=== PATIENT | female | born 1985 | race Caucasian/White ===

== ENCOUNTER 2024-07-30 17:31 | Emergency (ER) | payer BC, SELFPAY ==
[2024-07-30] VITALS (9 sets, daily range): BP systolic 118–139; BP diastolic 61–74; PULSE 71–78; RESP 18–20; TEMP 36.7; O2SAT 96–100; BMI 31.3
--- OUTSIDE RECORDS SUMMARY | 2024-07-30 17:33 | XMS_ITS | Clinical Summary ---
Author Organization [facility] Address [address] [place] [id number] Care Team Providers Care Dynamics Ax Technical Architect Name Role Phone Margarita Agosto MD Primary Care Provider Allergies No known active allergies Medications multivit with min-folic acid (WOMEN'S MULTIVITAMIN GUMMIES) 200 mcg chew Take by mouth. 0 6 Active norgestimate-ethi nyl estradiol, 0.25-35 mg-mcg, (Estarylla) 0.25-35 mg-mcg tabletIndications :Dysmenorrhea Take 1 Tablet by mouth once daily. 84 Tablet 3 Active FLUoxetine (PROZAC) 10 mg capsuleIndication s:Anxiety TAKE 1 CAPSULE (10 MG) BY MOUTH EVERY MORNING. 90 Capsule 4 Active Active Problems No known active problems Resolved Problems Problem Noted Date Diagnosed Date Resolved Date Supervision of other normal 05/16/2012 01/17/2017 Overview (11/27/2012): Rubella NonImmune TDaP 09/29/2012 Has had flu shot this season It's a boy! GBS negative HEMOGLOBIN (g/dL) Date Value 11/21/2012 10.8* Immunizations Name Administration Dates Next Due AMB Influenza, IIV4 PF (=>6 mos Flulaval,Fluzone Fluarix)(Flu Clinic Only) 04/02/2019,04/11/2018,04/23/2016, 0 15 COVID-19 vaccine (Screenburn NTech 30mcg/0.3mL) PF, MDV 06/24/2020,06/03/2020 Influenza, IIV3 (Age 6-35 mos) 03/18/2020 Influenza, IIV3 (Age >=3 years) 05/16/2012,05/10 Influenza, IIV4 03/03/2022,04/04/2017,03/25/2014 MMR 07/20/2018,12/24/2012 Tdap 09/15/2021,09/29/2012 Family History Medical History Relation Name Comments Good Health Father Deep vein thrombosis Maternal Grandmother Good Health Mother Hyperlipidemia Sister 1 Tomasz Anxiety disorder Sister 2 Rebecca Anxiety disorder Sister 3 Nay Good Health Sister 4 Chyna ADD / ADHD Son 1 Patricio Allergies Son 1 Patricio Anxiety disorder Son 1 Patricio Asthma Son 1 Patricio ADD / ADHD Son 2 Mazin Good Health Son 3 Felipe Anesthesia Problem No Family History Relation Name Status Comments Father Alive Maternal Grandmother Mother Alive Sister 1 Tomasz Alive Sister 2 Rebecca Alive Sister 3 Nay Alive Sister 4 Chyna Alive Son 1 Patricio Alive Son 2 Mazin Alive Son 3 Felipe Alive Social History Tobacco Use Types Packs/Day Years Used Date Smoking Tobacco: Former Cigarettes 1 12 0 07/11/1999 - 07/11/2011 Smokeless Tobacco: Never Tobacco Cessation:Counseling Given: Yes Alcohol Use Standard Drinks/Week Comments Yes 0 (1 standard drink = 0.6 oz pur e alcohol) PHQ-2 Answer Date Recorded PHQ-2 TOTAL SCORE 0 03/08/2023 Social Connections Answer Date Recorded Do you often feel lonely or isolated from those around you? 0 04/14/2024 Financial Resource Strain Answer Date R ecorded Difficulty of Paying Living Expenses 3 04/14/2024 Difficulty of Paying Living Expenses Not on file 04/14/2024 Food Insecurity Answer Date Recorded Do you worry your food will run out before you are able to buy more? 1 04/14/2024 Transportation Needs Answer Date Record ed Does lack of transportation keep you from medica l appointments? 1 04/14/2024 Does lack of transportation keep you from work, meetings or getting things that you need? 1 04/14/2024 Housing Stability Answer Date Recorded What is your housing situation today? 1 04/14/2024 Utilities Answer Date Recorded Do you have trouble paying f or utilities (for example, heat, electricity, water, phone)? 1 04/14/2024 Comments No Sex and Gender Information Value Date Recorded Sex Assigned at Female 04/02/2020 9:50 AM CDT Legal Sex Female 8:16 AM LIVERY CAR DRIVER Gender Identity Female 04/02/2020 9:50 AM CDT Sexual Orientation Straight 04/02/2020 9: 50 AM CDT Obstetrics History Para Term AB IAB SAB Ectopic Multiple Livin g Live Births 3 3 3 3 1 Date Outcome GA Total Labor Labor/2nd/3rd Weight Sex Type Anes PTL Michelle A1 A5 Name Clin 2007 Term 40w 0d 28h 00m/ 3.88 kg (8 lb 9 oz) M VAGINA L VACU patricio 2009 Term 40w 0d 6h 00m/ 3.88 kg (8 lb 9 oz) M Vag mazin Comments:induced 2012 Term 40w 2d 3h 20m 3h 02m/0h 11m/0h 07m M Vag Epidur al N Livin g 8 9 Felipe Tappe r Complications:None Comments:System Genera arian. Please review and update details. Last Filed Vital Signs Vital Sign Reading Time Taken Comments Blood Pressure 103/67 04/17/2021 8:48 AM LIVERY CAR DRIVER Pulse 73 04/17/2021 8:48 AM LIVERY CAR DRIVER Temperature 37.2 C (99 F) 02/16/2019 10:20 AM CDT Respiratory Rate 16 03/08/2019 11:35 AM CDT Oxygen Saturation 99% 04/17/2021 8:48 AM LIVERY CAR DRIVER Inhaled Oxygen Concentration - - Weight 75.9 kg (167 lb 6.4 oz) 04/17/2021 8:48 A M LIVERY CAR DRIVER Height 166.4 cm (5' 5.5) 04/17/2021 8:48 AM LIVERY CAR DRIVER Body Mass Index 27.43 04/17/2021 8:48 AM LIVERY CAR DRIVER Plan of Treatment Health Maintenance Due Date Last Done Comments Hepatitis C screening for age 18-79 2003 BMI (ht and wt on same day) for age 18+ 04/17/2022 04/17/2021, 02/16/2019, 01/08/2019, Additional history exists COVID-19 vaccine series ( season) 2024 03/03/2022, 07/31/2021, 06/24/2020, Additional history exists Influenza for age 9-49 02/05/2024 , 04/02/2019, 04/11/2018, Additional history exists Depression screening for age 12+ 03/08/2024 03/08/2023, 07/15/2022, 07/12/2022, Additional history exists Pap test for age 21-65 04/17/2026 , 04/17/2021, 02/02/2016, Additional history exists Tetanus booster 09/16/2031 09/15/2021, 09/29/2012 HIV for age 15-65 Completed 05/16/2012 Tdap Completed 09/15/2021, 09/29/2012 Pneumococcal series for age 6-49 Aged Out No longer eligible based on patient's age to complete this topic Procedures Procedure Name Priority Date/Time Associated Diagnosis Comments HPV HIGH RISK Routine 04/17/2021 9:30 AM LIVERY CAR DRIVER Screening for cervical cancer ANTI HIV 1/2 Routine 05/16/2012 4:41 PM LIVERY CAR DRIVER Supervision of other normal from Last 3 Months or Most Recently Relevant to Health Maintenance Results * HPV HIGH RISK (04/17/2021 9:30 AM LIVERY CAR DRIVER) TYPE 16 Negative Negative 04/21/2021 11:56 AM LIVERY CAR DRIVER [facility] TYPE 18 Negative Negative 04/21/2021 11:56 AM LIVERY CAR DRIVER [facility] OTHER HIGH RISK TYPES Negative Negative 04/21/2021 11:56 AM LIVERY CAR DRIVER [facility] Other (Cervical) Non-Blood / Unknown 04/17/2021 9:30 AM LIVERY CAR DRIVER 04/20/2021 9:35 AM [facility] 04/21/2021 11:56 AM LIVERY CAR DRIVER HPV types 16, 18, 31, 33, 35, 39, 45, 51, 52, 56, 58, 59, 66 and 68 DNA were undetectable or below the pre-set threshold. Methodology: [employer] 4800 HPV Test us Margarita Agosto MD MICROBIOLOGY Final R esult [facility] [address] [place] [address], [place] * ANTI HIV 1/2 (05/16/2012 4:41 PM LIVERY CAR DRIVER) ANTI HIV 1/2 Non-reacti ve [facility] Blood specimen (specimen) BLOOD SPECIMEN / Unknown 05/16/2012 4:41 PM LIVERY CAR DRIVER 05/16/2012 4:33 PM LIVERY CAR DRIVER us Enedelia Whitifeld NP SEND OUTS F inal Result [facility] [place]IP [id number] [place] [address] from Last 3 Months or Most Recently Relevant to Health Maintenance Insurance [facility] Advance Directives * Full Code (Latest Code Status on File) Date Activated Date Inactivated Comments 01/17/2019 6:09 AM 01/17/2019 4:30 PM Question Answer Comments Code Status Discussion: Discussed Care Teams Dynamics Ax Technical Architect Relationship Specialty Start Date End Date Margarita Agosto [place] [address] PCP - General Family Practice 05/16/12
--- OUTSIDE RECORDS SUMMARY | 2024-07-30 17:33 | XMS_ITS | Continuity of Care Document ---
Author Organization [facility] Address [address] [place] [id number] Phone Care Team Providers Care Forestry Aide Name Role Phone Reinaldo Das MD, FACOG Unavailable Unavailable Allergies, Adverse Reactions, Alerts Substance Reaction Status Criticality No Known Drug Allergies Active No I nformation Medications Medication Instructions Dosage Effective Dates (start - stop) Status Comments Tylenol 325 mg Tab Take two tablets twi ce a day as needed. - Active Vitamin Tab One every night. - Active Advance Directives Directive Yes / No Effective Date File Name No Information Encounters Encounter Description Practice Location Reason(s) For Visit Diagnoses Date Provider [facility], [address] [place] [address], [id number], tel:[phone] [place] [address] No Information 2009 Pippa Najera. [address] [place] [address], [id number], [place]. tel:[phone] [address] [place] [address], [address] [place] [address], [id number], [place] tel:[phone] [place] [address] 6 weeks post (chief complaint) Postpart Follow-up Routine 2009 Pippa Najera. [address] [place] [address], [id number], [place]. tel:[phone] [address] [place] [address], [address] [place] [address], [id number], tel:[phone] [place] [address] No Information 2009 No Information [facility], [address] [place] [address], [id number], [place] tel:[phone] [place] [address] No Information 2009 Pippa Najera. [address] [place] [address], [id number], [place]. tel:[phone] [facility], [address] [place] [address], [id number], [place] tel:[phone] [place], [place] [address]e [facility] No Information 2009 Pippa Najera. [address] [place] [address], [id number], [place]. tel:[phone] [address] [place], [place] [address] [facility], [address] [place] [address], [id number], [place] tel:[phone] [place] [address] No Information 2009 Pippa Najera. [address] [place] [address], [id number], [place]. tel:[phone] [address] [place], [place] [address]irie [facility], [address] [place] [address], [id number], [place] tel:[phone] [place] [address] No Information 2009 Pippa Najera. [address] [place] [address], [id number], [place]. tel:[phone] [facility], [address] [place] [address], [id number], [place] tel:[phone] [place] [address] No Information 2009 Pippa Najera. [address] [place] [address], [id number], [place]. tel:[phone] [facility], [address] [place] [address], [id number], [place] tel:[phone] [place] [address] No Information 2009 Pippa Najera. [address] [place] [address], [id number], [place]. tel:[phone] [facility], [address] [place] [address], [id number], [place] tel:[phone] [place] [address] No Information 2009 Pippa Najera. [address] [place] [address], [id number], [place]. tel:[phone] [address] [place] [address], [address] [place] [address], [id number], [place] tel:[phone] [facility] No Information 2009 Pippa Najera. [address] [place] [address], [id number], [place]. tel:[phone] [place], [place] [address]e [facility], [address] [place] [address], [id number], [place] tel:[phone] [place] [address] No Information 2009 Pippa Najera. [address] [place] [address], [id number], [place]. tel:[phone] [address] [place] [address], [address] [place] [address], [id number], [place] tel:[phone] [place] [address] No Information 2009 Pippa Najera. [address] [place] [address], [id number], [place]. tel:[phone] [address] [place] [address], [address] [place] [address], [id number], [place] tel:[phone] [place] [address] No Information 2008 Pippa Najera. [address] [place] [address], [id number], [place]. tel:[phone] [place], [place] [address]e [facility], [address] [place] [address], [id number], [place] tel:[phone] [place] [address] No Information 2008 Pippa Najera. [address] [place] [address], [id number], [place]. tel:[phone] [address] [place] [address], [address] [place] [address], [id number], [place] tel:[phone] [facility] No Information 2008 Pippa Najera. [address] [place] [address], [id number], [place]. tel:[phone] [place], [place] [address]e [facility], [address] [place] [address], [id number], [place] tel:[phone] [facility] 6 weeks post (chief complaint) Postpart Follow-up Routine 2007 Pippa Najera. [address] [place] [address], [id number], [place]. tel:[phone] [place], [place] [address]e [facility], [address] [place] [address], [id number], [place] tel:[phone] [place] [address] No Information 2007 Pippa Najera. [address] [place] [address], [id number], [place]. tel:[phone] [place], [place] [address]e [facility], [address] [place] [address], [id number], [place] tel:[phone] [place] [address] No Information 2007 Pippa Najera. [address] [place] [address], [id number], [place]. tel:[phone] [address] [place] [address], [address] [place] [address], [id number], [place] tel:[phone] [place] [address] No Information 2007 Pippa Najera. [address] [place] [address], [id number], [place]. tel:[phone] [address] [place] [address], [address] [place] [address], [id number], [place] tel:[phone] [place] [address] No Information 2007 Pippa Najera. [address] [place] [address], [id number], [place]. tel:[phone] [address] [place] [address], [address] [place] [address], [id number], [place] tel:[phone] [place] [address] No Information 2007 Edmar Justice. [address] [place] [address], [id number], [place]. tel:[phone] [facility], [address] [place] [address], [id number], [place] tel:[phone] [facility] No Information 2007 Pippa Najera. [address] [place] [address], [id number], [place]. tel:[phone] [facility], [address] [place] [address], [id number], [place] tel:[phone] [facility] No Information 2007 Pippa Najera. [address] [place] [address], [id number], [place]. tel:[phone] [facility], [address] [place] [address], [id number], [place] tel:[phone] [facility] No Information 2007 Pippa Najera. [address] [place] [address], [id number], [place]. tel:[phone] [facility], [address] [place] [address], [id number], [place] tel:[phone] [facility] No Information 2007 Pippa Najera. [address] [place] [address], [id number], [place]. tel:[phone] [facility], [address] [place] [address], [id number], [place] tel:[phone] [facility] No Information 2007 Pippa Najera. [address] [place] [address], [id number], [place]. tel:[phone] [facility], [address] [place] [address], [id number], [place] tel:[phone] [facility] No Information 2007 Pippa Najera. [address] [place] [address], [id number], [place]. tel:[phone] [facility], [address] [place] [address], [id number], tel:[phone] [place] [address] No Information 2006 Pippa Najera. [address] [place] [address], [id number], [place]. tel:[phone] [address] [place] [address], [address] [place] [address], [id number], tel:[phone] [place] [address] No Information 2006 Pippa Najera. [address] [place] [address], [id number], [place]. tel:[phone] [address] [place] [address], [address] [place] [address], [id number], tel:[phone] [place] [address] No Information 2006 Pippa Najera. [address] [place] [address], [id number], [place]. tel:[phone] [address] [place] [address], [address] [place] [address], [id number], [place] tel:[phone] [place] [address] No Information 2006 Pippa Najera. [address] [place] [address], [id number], [place]. tel:[phone] [address] [place] [address], [address] [place] [address], [id number], [place] tel:[phone] [place] [address] No Information 2006 Pippa Najera. [address] [place] [address], [id number], [place]. tel:[phone] [address] [place] [address], [address] [place] [address], [id number], [place] tel:[phone] [place] [address] annual visit (chief complaint)pr econception (chief complaint) No Information 2006 Pippa Najera. [address] [place] [address], [id number], [place]. tel:[phone] Family History Family Member Type Diagnosis Age At Onset Problem (finding) Family history of Cance r -lung Problem (finding) Family history of alcoh olism Sister Problem (finding) migraine Problem (finding) Family history of depre ssion Sister Problem (finding) Alive and well Father Problem (finding) Alive and well 46 Sister Problem (finding) depression Problem (finding) Family history of Cance r -unknown Mother Problem (finding) Alive and well 48 Immunizations Vaccine Date Status Comments MMR administered Source: New Imm unization Record Tdap administered Source: New Imm unization Record Novel [id number], All Formulations administered Source: New Immuniza tion Record flu (split) (3 yrs or older) administered Source: New Immunization Record MMR administered Source: New Imm unization Record flu (split) (3 yrs or older) administered Source: New Immunization Record Payers Payer name Insurance type Covered democrat ID Authoriza tion(s) [facility] [id number] Social History Type Description Quantity Date Captured Comments Sex Female Smoking Status No Information Chief Complaint And Reason For Visit No Information Plan Of Treatment Date Type Action Status Goal Breast exam. Due on 009 due Goal TD Vaccine. Due on 10 due Goal PAP. Due on due Goal H&P. Due on due Goal AUTOMATION CONTROL TECHNICIAN exam. Due on due History Of Present Illness Encounter Date Complaint History Of Prese nt Illness No Information Instructions Date Instruction Additional Infor mation No Information Assessments Type Assessment Date No Information
[2024-07-30] MEDS: ONDANSETRON ODT 4 MG TAB PO (18:07)
[2024-07-30 19:37] LABS: Basophils Absolute Auto 0.03 K/uL (0.00-0.30); Basophils Percent Auto 0.3 % (0.0-3.0); Hematocrit 39.6 % (33.0-51.0); Hemoglobin* 13.2 gm/dL (12.0-16.0); Immature Granulocytes Abs Auto 0.02 K/uL (0.00-0.30); Immature Granulocytes Pct Auto 0.2 %; Lymphocytes Absolute Auto 2.03 K/uL (0.90-2.90); Lymphocytes Percent Auto 20.3 % (20-44); Mean Corpuscular HGB Conc 33 gm/dL (32-36); Mean Corpuscular Hemoglobin 30 pg (26-34); Mean Corpuscular Volume 89 fL (80-100); Monocytes Percent Auto 7.1 % (0.0-11.0); Neutrophils Absolute Auto 7.11 K/uL (1.7-7.0); Neutrophils Percent Auto 71.1 % (42.0-72.0); Platelet Count* 244 K/uL (140-440); RDW Coefficient of Variation % 12.3 % (11.5-15.5); Red Blood Count 4.47 m/uL (4.00-5.20)
[2024-07-30 19:37] LABS: Appearance Urine Clear (Clear); Bilirubin Urine Negative (Negative); Blood Urine Negative (Negative); Color Urine Yellow (Yellow); Glucose Urine Negative (Negative); Ketones Urine Negative (Negative); Leukocyte Esterase Urine Negative (Negative); Nitrite Urine Negative (Negative); Protein Urine 1+ (Negative); Specific Gravity Urine >= 1.030 (1.000-1.030); Urobilinogen Urine 0.2 (0.2-1.0); pH Urine 5.5 (5.0-8.5)
[2024-07-30 19:40] LABS: Ur HCG Qualitative* Negative (Negative)
--- NOTE | 2024-07-30 19:42 | CRLHL7_ITS ---
For Patients: As a result of the Century Cures Act, medical imaging exams and procedure reports are released immediately into your electronic medical record. You may view this report before your referring provider. If you have questions, please contact your health care provider. INDICATION: Right flank pain. TECHNIQUE: CT abdomen and pelvis acquired with 92 cc Isovue 370 IV contrast. COMPARISON: None. FINDINGS: Lower chest: Unremarkable. Liver: Diffuse parenchymal hypoattenuation. Punctate calcifications. No suspicious masses. Gallbladder and bile ducts: Unremarkable. No stones or inflammation. No biliary dilatation. Pancreas: Unremarkable. No mass or inflammation. Spleen: Unremarkable. Normal in size. No masses. Adrenal glands: Unremarkable. No nodules. Kidneys: 2 mm calcified stone in the distal right ureter near the UVJ (2/138) with associated mild hydroureter and moderate hydronephrosis. Mild perinephric inflammatory changes as well. Punctate nonobstructive right renal calcifications. Subcentimeter hypodense renal lesions that are too small to characterize, possibly cysts. GI tract: Unremarkable. Normal in caliber. No sign of mass or inflammation. Normal appendix. Vasculature: Abdominal aorta is normal in caliber. Mesenteric arteries are patent. Lymph nodes: No lymphadenopathy. Peritoneum/Abdominal Wall: Unremarkable. No sign of mass or infiltration. No free air or significant free fluid. Pelvis: Bladder is decompressed. Reproductive organs are unremarkable. Bones: No acute or suspicious lesions. Bilateral L5 pars defects with grade 1 anterolisthesis of L5 on S1. IMPRESSION: 1. 2 mm calcified stone in the distal right ureter with associated moderate right hydronephrosis and mild inflammatory changes. 2. Steatosis. Please note that all CT scans at this facility use dose modulation, iterative reconstruction, and/or weight-based dosing when appropriate to reduce radiation dose to as low as reasonably achievable. Dictated by Davian Barnes MD @ 07/30/2024 8:48:54 PM (Electronically Signed)
[2024-07-30] MEDS: KETOROLAC 15 MG/ML inj IVP (19:45)
--- OUTSIDE RECORDS SUMMARY | 2024-07-30 19:46 | XMS_ITS | Continuity of Care Document ---
Author Organization [facility] Address [address] [place] [id number] Phone Care Team Providers Care Manager Of Quality Name Role Phone Reinaldo Das MD, FACOG [...] Location Reason(s) For Visit Diagnoses Date Provider [facility], [address] [place] [address], [id number], tel:[phone] [place] [address] No Information 2009 Pippa Najera. [address] [place] [address], [id number], [place]. tel:[phone] [address] [place] [address], [address] [place] [address], [id number], [place] tel:[phone] [place] [address] 6 weeks post (chief complaint) Postpart Follow-up Routine 2009 Pippa Najera. [address] [place] [address], [id number], [place]. tel:[phone] [address] [place] [address], [address] [place] [address], [id number], tel:[phone] [place] [address] No Information 2009 No Information [facility], [address] [place] [address], [id number], [place] tel:[phone] [place] [address] No Information 2009 Pippa Najera. [address] [place] [address], [id number], [place]. tel:[phone] [facility] [place], [address] [place] [address], [id number], [place] tel:[phone] [place], [place] [address]e [facility] No Information 2009 Pippa Najera. [address] [place] [address], [id number], [place]. tel:[phone] [address] [place], [place] [address]irie [facility], [address] [place] [address], [id number], [place] tel:[phone] [place] [address] No Information 2009 Pippa Najera. [address] [place] [address], [id number], [place]. tel:[phone] [address] [place], [place] [address]irie [facility], [address] [place] [address], [id number], [place] tel:[phone] [place] [address] No Information 2009 Pippa Najera. [address] [place] [address], [id number], [place]. tel:[phone] [facility], [address] [place] [address], [id number], [place] tel:[phone] [place] [address] No Information 2009 Pippa Najera. [address] [place] [address], [id number], [place]. tel:[phone] [facility] [place], [address] [place] [address], [id number], [place] tel:[phone] [place] [address] No Information 2009 Pippa Najera. [address] [place] [address], [id number], [place]. tel:[phone] [facility] [place], [address] [place] [address], [id number], [place] tel:[phone] [place] [address] No Information 2009 Pippa Najera. [address] [place] [address], [id number], [place]. tel:[phone] [address] [place] [address], [address] [place] [address], [id number], [place] tel:[phone] [facility] No Information 2009 Pippa Najera. [address] [place] [address], [id number], [place]. tel:[phone] [address] [place], [place] [address]e [facility], [address] [place] [address], [id number], [place] tel:[phone] [place] [address] No Information 2009 Pippa Najera. [address] [place] [address], [id number], [place]. tel:[phone] [address] [place] [address], [address] [place] [address], [id number], [place] tel:[phone] [place] [address] No Information 2009 Pippa Najera. [address] [place] [address], [id number], [place]. tel:[phone] [address] [place] [address], [address] [place] [address], [id number], [place] tel:[phone] [place] [address] No Information 2008 Pippa Najera. [address] [place] [address], [id number], [place]. tel:[phone] [address] [place], [place] [address]e [facility], [address] [place] [address], [id number], [place] tel:[phone] [place] [address] No Information 2008 Pippa Najera. [address] [place] [address], [id number], [place]. tel:[phone] [address] [place] [address], [address] [place] [address], [id number], [place] tel:[phone] [facility] No Information 2008 Pippa Najera. [address] [place] [address], [id number], [place]. tel:[phone] [address] [place], [place] [address]e [facility], [address] [place] [address], [id number], [place] tel:[phone] [facility] 6 weeks post (chief complaint) Postpart Follow-up Routine 2007 Pippa Najera. [address] [place] [address], [id number], [place]. tel:[phone] [address] [place], [place] [address]e [facility], [address] [place] [address], [id number], [place] tel:[phone] [place] [address] No Information 2007 Pippa Najera. [address] [place] [address], [id number], [place]. tel:[phone] [address] [place], [place] [address]e [facility], [address] [place] [address], [id number], [place] tel:[phone] [place] [address] No Information 2007 Pippa Najera. [address] [place] [address], [id number], [place]. tel:[phone] [address] [place] [address], [address] [place] [address], [id number], [place] tel:[phone] [place] [address] No Information 2007 Pippa Najera. [address] [place] [address], [id number], [place]. tel:[phone] [address] [place] [address], [address] [place] [address], [id number], [place] tel:[phone] [place] [address] No Information 2007 Pippa Najera. [address] [place] [address], [id number], [place]. tel:[phone] [address] [place] [address], [address] [place] [address], [id number], [place] tel:[phone] [place] [address] No Information 2007 Edmar Justice. [address] [place] [address], [id number], [place]. tel:[phone] [facility] [place], [address] [place] [address], [id number], [place] tel:[phone] [facility] No Information 2007 Pippa Najera. [address] [place] [address], [id number], [place]. tel:[phone] [facility] [place], [address] [place] [address], [id number], [place] tel:[phone] [facility] No Information 2007 Pippa Najera. [address] [place] [address], [id number], [place]. tel:[phone] [facility] [place], [address] [place] [address], [id number], [place] tel:[phone] [facility] No Information 2007 Pippa Najera. [address] [place] [address], [id number], [place]. tel:[phone] [facility] [place], [address] [place] [address], [id number], [place] tel:[phone] [facility] No Information 2007 Pippa Najera. [address] [place] [address], [id number], [place]. tel:[phone] [facility] [place], [address] [place] [address], [id number], [place] tel:[phone] [facility] No Information 2007 Pippa Najera. [address] [place] [address], [id number], [place]. tel:[phone] [facility] [place], [address] [place] [address], [id number], [place] tel:[phone] [facility] No Information 2007 Pippa Najera. [address] [place] [address], [id number], [place]. tel:[phone] [facility] [place], [address] [place] [address], [id number], tel:[phone] [place] [address] No Information 2006 Pippa Najera. [address] [place] [address], [id number], [place]. tel:[phone] [address] [place] [address], [address] [place] [address], [id number], tel:[phone] [place] [address] No Information 2006 Pippa Najera. [address] [place] [address], [id number], [place]. tel:[phone] [address] [place] [address], [address] [place] [address], [id number], tel:[phone] [place] [address] No Information 2006 Pippa Najera. [address] [place] [address], [id number], [place]. tel:[phone] [address] [place] [address], [address] [place] [address], [id number], [place] tel:[phone] [place] [address] No Information 2006 Pippa Najera. [address] [place] [address], [id number], [place]. tel:[phone] [address] [place] [address], [address] [place] [address], [id number], [place] tel:[phone] [place] [address] No Information 2006 Pippa Najera. [address] [place] [address], [id number], [place]. tel:[phone] [address] [place] [address], [address] [place] [address], [id number], [place] tel:[phone] [place] [address] annual visit (chief complaint)pr econception (chief complaint) No Information 2006 Pippa Najera. [address] [place] [address], [id number], [place]. tel:[phone] Family History Family Member Type Diagnosis [...] administered Source: New Imm unization Record Novel [id number], All Formulations administered Source: New Immuniza tion Record flu (split) (3 yrs or older) administered Source: New Immunization Record MMR administered Source: New Imm unization Record flu (split) (3 yrs or older) administered Source: New Immunization Record Payers Payer name Insurance type Covered libertarian ID Authoriza tion(s) [facility] [id number] Social History Type Description Quantity Date Captured Comments Sex Female Smoking Status No Information Chief Complaint And Reason For Visit No Information Plan Of Treatment Date Type Action Status Goal Breast exam. Due on 009 due Goal TD Vaccine. Due on 10 due Goal PAP. Due on due Goal H&P. Due on due Goal NATUROPATHIC DOCTOR exam. Due on due History Of Present Illness Encounter Date Complaint History Of Prese nt Illness No Information Instructions Date Instruction Additional Infor mation No Information Assessments Type Assessment Date No Information
--- OUTSIDE RECORDS SUMMARY | 2024-07-30 19:46 | XMS_ITS | Clinical Summary ---
Author Organization [facility] Address [address] [place] [address] Care Team Providers Care Demand Planning Analyst Name Role Phone Margarita Agosto MD Primary [...] Clinic Only) 04/02/2019,04/11/2018,04/23/2016, 0 15 COVID-19 vaccine (VersionOne NTech 30mcg/0.3mL) PF, MDV 06/24/2020,06/03/2020 Influenza, IIV3 [...] AM CDT Legal Sex Female 8:16 AM CROP ROLLER Gender Identity Female 04/02/2020 9:50 AM CDT [...] Comments Blood Pressure 103/67 04/17/2021 8:48 AM CROP ROLLER Pulse 73 04/17/2021 8:48 AM CROP ROLLER Temperature 37.2 C (99 F) 02/16/2019 10:20 AM CDT Respiratory Rate 16 03/08/2019 11:35 AM CDT Oxygen Saturation 99% 04/17/2021 8:48 AM CR[employer] ROLLER Inhaled Oxygen Concentration - - Weight 75.9 kg (167 lb 6.4 oz) 04/17/2021 8:48 A M [employer] ROLLER Height 166.4 cm (5' 5.5) 04/17/2021 8:48 AM CROP ROLLER Body Mass Index 27.43 04/17/2021 8:48 AM CROP ROLLER Plan of Treatment Health Maintenance Due Date [...] HPV HIGH RISK Routine 04/17/2021 9:30 AM CROP ROLLER Screening for cervical cancer ANTI HIV 1/2 Routine 05/16/2012 4:41 PM CROP ROLLER Supervision of other normal from Last 3 Months or Most Recently Relevant to Health Maintenance Results * HPV HIGH RISK (04/17/2021 9:30 AM CROP ROLLER) TYPE 16 Negative Negative 04/21/2021 11:56 AM CROP ROLLER [facility] TYPE 18 Negative Negative 04/21/2021 11:56 AM CROP ROLLER [facility] OTHER HIGH RISK TYPES Negative Negative 04/21/2021 11:56 AM CROP ROLLER [facility] Other (Cervical) Non-Blood / Unknown 04/17/2021 9:30 AM CROP ROLLER 04/20/2021 9:35 AM [facility] - 04/21/2021 11:56 AM CROP ROLLER HPV types 16, 18, 31, 33, 35, 39, 45, 51, 52, 56, 58, 59, 66 and 68 DNA were undetectable or below the pre-set threshold. Methodology: [employer] 4800 HPV Test us Margarita Agosto MD MICROBIOLOGY Final R esult [facility] [address] [place] [address], [place] * ANTI HIV 1/2 (05/16/2012 4:41 PM CROP ROLLER) ANTI HIV 1/2 Non-reacti ve [facility] Blood specimen (specimen) BLOOD SPECIMEN / Unknown 05/16/2012 4:41 PM CROP ROLLER 05/16/2012 4:33 PM CROP ROLLER us Enedelia Whitfield NP SEND OUTS F inal Result [facility] INTERNAL ZIP [id number] [place] [address] from Last 3 Months or Most Recently Relevant to Health Maintenance [facility] Advance Directives * Full Code (Latest Code Status on File) Date Activated Date Inactivated Comments 01/17/2019 6:09 AM 01/17/2019 4:30 PM Question Answer Comments Code Status Discussion: Discussed Care Teams Demand Planning Analyst Relationship Specialty Start Date End Date Margar[place] [address] PCP - General Family Practice 05/16/12
[2024-07-30 19:47] LABS: Slide Review Reflex No
[2024-07-30 19:49] LABS: Chloride* 103 mmol/L (96-114); Sodium* 139 mmol/L (135-149)
[2024-07-30 19:52] LABS: Anion Gap 11 mEq/L (7-15); Blood Urea Nitrogen* 21 mg/dL (5-24); Carbon Dioxide* 25 mmol/L (20-32); Creatinine* 0.8 mg/dL (0.5-1.5); Est. Creatinine Clearance* 84.96; Estimated Glomerular Filt Rate 96 ml/min
[2024-07-30 19:53] LABS: Calcium* 9.5 mg/dL (8.4-10.6); Glucose* 102 mg/dL (60-115)
[2024-07-30 20:02] LABS: Amorphous Sediment Urine Moderate; Fine Granular Casts Urine Few; RBC Urine 0-2 (0-2); Squamous Epithelial Cell Urine Few (None-Few); WBC Urine 0-2 (0-5)
--- NOTE | 2024-07-30 20:07 | ED.GENADULT ---
HPI - General Adult General Date Seen: 07/30/24 Chief complaint: Flank Pain Stated complaint: Kidney stones Time Seen by Provider: 07/30/24 19:24 Source: patient Mode of arrival: ambulatory Limitations: no limitations History of Present Illness HPI narrative: Patient is a 39-year-old female with no pertinent mg problems presenting to the emergency department for right flank pain. She states she has noticed urinary frequency starting last night and thought she might have a UTI. 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 States the pain has since gotten worst and goes from her right low flank to her right lower quadrant. States his a very dull ache. Has had kidney stones before she states and this feels similar. Has not noticed any fevers, chills, chest pain, shortness of breath, diarrhea, constipation, headache, lightheadedness, dizziness. Did have some nausea earlier due to the pain to was given Zofran in triage. She states that has helped with her nausea. Has not had any previous abdominal surgeries. No other concerns noted. Related Data Home Medications ?Medication ?Instructions ?Recorded ?Confirmed fluoxetine 10 mg capsule 10 mg PO QAM 02/20/24 02/20/24 Previous Rx's ?Medication ?Instructions ?Recorded tamsulosin 0.4 mg capsule (Flomax) 0.4 mg PO DAILY #7 caps 07/30/24 Allergies Allergy/AdvReac Type Severity Reaction Status Date / Time No Known Drug Allergies Allergy Verified 07/30/24 19:56 Review of Systems Status of ROS: Reports: 10 or more systems reviewed and unremarkable except as noted in History and below [facility] Medical History (Updated 07/30/24 @ 21:07 by Rinku Cooper RN) Kidney stone ?N20.0 - Calculus of kidney (ICD-10) Exam Narrative: Exam Narrative: Const: Well-nourished, Well-developed, in moderate distress Eyes: PERRL, no conjunctival injection, and symmetrical lids HENT: Atraumatic external nose and ears. Moist mucous membranes. Neck: Symmetric, trachea midline, No thyromegaly. CVS: RRR, No murmurs or gallops. Peripheral pulses 2+ and equal in all extremities RESP: Unlabored respiratory effort. Clear to auscultation bilaterally. GI: Nontender/Nondistended, No rebound or guarding. Right low flank tenderness MSK:Extremities w/o deformity, Normal Active ROM Skin: Warm, Dry. No rashes or lesions. Neuro: Normal Muscle tone, No focal neurological deficits. Psych: Awake, Alert, & Oriented x3. Appropriate mood and affect. Const: Vital Signs, click to edit/add: Vital Signs - 24 hr 07/30/24 17:59 07/30/24 19:45 Temperature 98.1 F 98.1 F Pulse Rate [Pulse Oximeter] 78 Respiratory Rate 18 Blood Pressure [Ri ght Upper Arm] 123/74 Pulse Oximetry 96 Oxygen Delivery Me thod Room Air Course Vital Signs Vital signs: Initial Vital Signs Temperature 98.1 F 07/30/24 17:59 Temperature Source Temporal Artery Scan 07/30/24 17:59 Pulse Rate 78 07/30/24 17:59 Respiratory Rate 18 07/30/24 17:59 Blood Pressure 123/74 07/30/24 17:59 Blood Pressure Mean 90 07/30/24 17:59 Pulse Oximetry 96 07/30/24 17:59 Oxygen Delivery Method Room Air 07/30/24 17:59 Vital Signs Temperature 98.1 F 07/30/24 17:59 Pulse Rate 78 07/30/24 17:59 Respiratory Rate 18 07/30/24 17:59 Blood Pressure 123/74 07/30/24 17:59 Pulse Oximetry 96 07/30/24 17:59 Oxygen Delivery Method Room Air 07/30/24 17:59 Temperature 98.1 F 07/30/24 19:45 Pulse Rate 78 07/30/24 17:59 Respiratory Rate 18 07/30/24 17:59 Blood Pressure 123/74 07/30/24 17:59 Pulse Oximetry 96 07/30/24 17:59 Oxygen Delivery Method Room Air 07/30/24 17:59 Medications Administered Medications: Generic Name Dose Route Start Last Admin Trade Name Freq PRN Reason Stop Dose Admin Morphine Sulfate 4 mg 07/30/24 20:33 07/30/24 20:37 Morphine 4 Mg/Ml Inj IVP 07/30/24 20:34 4 mg ONCE ONE Administration Discontinued Medications Generic Name Dose Route Start Last Admin Trade Name Freq PRN Reason Stop Dose Admin Ketorolac Tromethamine 15 mg 07/30/24 19:41 07/30/24 19:45 Ketorolac 15 Mg/Ml Inj IVP 07/30/24 19:42 15 mg ONCE ONE Administration Ondansetron HCl 4 mg 07/30/24 18:04 07/30/24 18:07 Ondansetron Odt 4 Mg Tab PO 07/30/24 18:05 4 mg ONCE ONE Administration Medical Decision Making MDM Narrative Medical decision making narrative: Patient is a 39-year-old female presenting for right lower flank pain. She has concerns could be a kidney stone. Pain does radiate her right midline. There is some mild concern for possible appendicitis. Will do CT scan with IV contrast to rule out both kidney stone and appendicitis. Zofran given for nausea and Toradol for pain. Also do CBC, urinalysis, BMP, urine test. Lab work returned showing no concerning findings. Zofran helped with the nausea the Toradol did not help with the pain. Morphine will be ordered. Morphine did help her pain. CT scan does show a small kidney stone with right hydronephrosis consistent with the pain. The patient will be started on Flomax. She feels comfortable being discharged. Will give her Toradol, oxycodone, Zofran via instymeds. Lab Data Labs: Lab Results 07/30/24 07/30/24 Range/Units 19:28 19:30 WBC 10.00 (4.50-11.00) K/uL RBC 4.47 (4.00-5.20) m/uL Hgb 13.2 (12.0-16.0) gm/dL Hct 39.6 (33.0-51.0) % MCV 89 (80-100) fL MCH 30 (26-34) pg MCHC 33 (32-36) gm/dL RDW Coeff of Jerry 12.3 (11.5-15.5) % Plt Count 244 (140-440) K/uL Neut % (Auto) 71.1 (42.0-72.0) % Lymph % (Auto) 20.3 (20-44) % Mcleod % (Auto) 7.1 (0.0-11.0) % Eos % (Auto) 1.0 (0.0-7.0) % Baso % (Auto) 0.3 (0.0-3.0) % Neut # (Auto) 7.11 H (1.7-7.0) K/uL Lymph # (Auto) 2.03 (0.90-2.90) K/uL Mcleod # (Auto) 0.70 (0.00-0.90) K/UL Eos # (Auto) 0.10 (0.00-0.50) K/uL Baso # (Auto) 0.03 (0.00-0.30) K/uL Abs Immat Gran (auto) 0.02 (0.00-0.30) K/uL Imm/Tot Granulo (auto) 0.2 % Sodium 139 (135-149) mmol/L Potassium 4.0 (3.6-5.1) mmol/L Chloride 103 (96-114) mmol/L Carbon Dioxide 25 (20-32) mmol/L Anion Gap 11 (7-15) mEq/L BUN 21 (5-24) mg/dL Creatinine 0.8 (0.5-1.5) mg/dL Estimated Creat Clear 84.96 Estimated GFR 96 ml/min Glucose 102 (60-115) mg/dL Calcium 9.5 (8.4-10.6) mg/dL Urine Color Yellow (Yellow) Urine Appearance Clear (Clear) Urine pH 5.5 (5.0-8.5) Ur Specific [place] >= 1.030 (1.000-1.030) Urine Protein 1+ A (Negative) Urine Glucose (UA) Negative (Negative) Urine Ketones Negative (Negative) Urine Blood Negative (Negative) Urine Nitrite Negative (Negative) Urine Bilirubin Negative (Negative) Urine Urobilinogen 0.2 (0.2-1.0) Ur Leukocyte Esterase Negative (Negative) Urine RBC 0-2 (0-2) Urine WBC 0-2 (0-5) Urine WBC Clumps None (None) Ur Squamous Epith Cells Few (None-Few) Amorphous Sediment Moderate A (None) Urine Bacteria None (None) Fine Granular Casts Few A (None) Urine HCG, Qual Negative (Negative) Imaging Data CT scan abdomen pelvis: Attestation: I have reviewed the pertinent imaging results. Radiologist's impression: 1. 2 mm calcified stone in the distal right ureter with associated moderate right hydronephrosis and mild inflammatory changes. 2. Steatosis. Please note that all CT scans at this facility use dose modulation, iterative reconstruction, and/or weight-based dosing when appropriate to reduce radiation dose to as low as reasonably achievable. Dictated by Davian Barnes MD @ 07/30/2024 8:48:54 PM Discharge Plan Discharge Clinical Impression: Kidney stone Patient Disposition: Home, Self-Care Condition: Stable Instructions: How to Strain Your Urine (ED) Additional Instructions: This kidney stone is likely causing his symptoms. Take Flomax until you passed her stone. Recommend strain urine so you can know when the stone passes. A male try taking Toradol for pain. Toradol is not helping you can take oxycodone. While taking Toradol do not take other NSAID such as naproxen or ibuprofen. New Zofran as needed for nausea. Return for new or worsening symptoms Prescriptions: New tamsulosin [Flomax] 0.4 mg capsule 0.4 mg PO DAILY Qty: 7 0RF No Action fluoxetine 10 mg capsule 10 mg PO QAM Follow Up/Referrals: Margarita Agosto MD [Primary Care Provider] - Stand Alone Forms: [employer] Info Instructions
[2024-07-30] MEDS: MORPHINE 4 MG/ML INJ IVP (20:37)
[2024-07-30] MEDS: TAMSULOSIN HCL 0.4 MG CAPSULE PO (21:04)
== END 2024-07-30 21:11 | disposition home or self-care (01) ==
PROVIDERS: Emergency Provider Student in an Organized Health Care Education/Training Program; PCP Family Medicine
DX: N20.0 Calculus of kidney (principal)
CPT/HCPCS: 36415; 74177; 80048; 81001; 81025; 85025; 94761; 96374; 96375; 99284; 99285; A9270; J1885; J2270; Q9967